=== PATIENT | male | born 1980 | race Hispanic/Latino ===

== ENCOUNTER 2016-10-08 13:29 | Emergency (ER) | payer OTHER ==
[~2016-10-08] VITALS: Ht 167.6 cm; Wt 95.5 kg
[~2016-10-08 13:29] MED LIST: OXYC5TAB72 PO
[2016-10-08 13:34] VITALS: BP 139/96; PULSE 59; RESP 20; O2SAT 99
--- NOTE | 2016-10-08 13:54 | ED.REPORT ---
HPI-Dental/Mouth Prob Date of Service Oct 08, 2016 ED Provider: Va Villatoro History of Present Illness: dental pain. did not see a dentist. will be staying in area. states had a warrent and was in nursing home in [place] , was released 10/01/2016. primary care is no one. Nursing Notes Stated Complaint: TOOTHACHE Chief Complaint: Dental Nursing Notes Reviewed: Yes Allergies: Coded Allergies: No Known Allergies (Unverified , 08/19/16) Scheduled PRN oxyCODONE (oxyCODONE) 5 Mg Tablet 5 MG PO Q4H PRN PRN For Pain General Time Seen by MD: 13:54 Chief Complaint Tooth pain Hx Obtained From: Patient Onset Occurred: 4 days ago Symptom Duration: Since onset Recent Healthcare: Recent doctor visit (seen in august for dental pain) Past Medical History Past Medical History Notes: hx of lymphoma Past Medical History Denies: Asthma, Diabetes mellitus Past Surgical History abd surgery for tumor removal Smoking History Current Every Day Smoker (1/2 pack a day for 10), Smoker Current Status UNK ( ears) Social History Alcohol Use: Denies alcohol use Drug Use: Denies drug use Occupation lives with girlfriend, work at [employer] 10/08/2016 Ambulatory Status Independent Review of Systems Basic Review of Systems Eyes: Vision NL, No discharge Cardiovascular: No chest pain, No dyspnea on exertion, No orthopnea, No parox noct dyspnea, No palpitations : No dysuria, No frequency Musculoskeletal: No extremity swelling, No extremity pain, Full range of motion , Joints NL Hematologic: No bleeding, No bruising Endocrine: No cold intolerance, No heat intolerance, No weight gain, No weight loss Skin: No bruising, No rash, No itch Allergy / Immune: No allergy Neurologic: NL mental status, No weakness, No numbness Psychiatric: Normal thought content Physical Exam Initial Vital Signs Vital Signs (First) Date Time Temp Pulse Resp B/P Pulse Ox O2 Delivery O2 Flow Rate FiO2 10/08/16 13:34 37 59 20 139/96 99 Room Air Initial VS: Reviewed, Vital signs normal General/Constitutional: Well-developed, Well-nourished Head / Eyes: Atraumatic, Normocephalic, PERRL Respiratory: Breath sounds normal, Clear to auscultation, No respiratory distress Cardiovascular: Regular rate & rhythm, Heart sounds normal, Intact distal pulses Abdomen / GI: Soft, Non-tender, No guarding, No rebound, No distention Back: No CVA tenderness Lymphatic: No lymphadenopathy Extremities: Vascular intact, Neuro intact, No swelling, No tenderness Skin: Warm, Dry, No cyanosis Neurologic: Alert, Oriented, Nonfocal Psychiatric: Mood/affect normal, Behavior normal, Normal thought content ENT: Atraumatic, Airway patent, Mucous membranes moist, Pharynx NL teeth in poor repair. tooth in question is #13, has extensive decay and is mostly gone. Many teeth have this same presentation. no facial swelling, no gum swelling, no erthyma around tooth Neck: Atraumatic, Supple, No meningismus General/Constitutional: Awake, Alert, No acute distress, Well appearing, Well developed, Well hydrated Head / Eyes: Atraumatic, Normocephalic, PERRL Respiratory / Chest: Atraumatic, Breath sounds NL, Breath sounds = bilat Cardiovascular: Heart rate NL, Regular rhythm, Heart sounds NL, No gallop Neurologic: Oriented X3, Speech NL, No motor deficits Re-Eval/Medical Decision Med Decision/Clinical Course patient with chronic decay, no facial swelling encouraged to seek dental care. Provided a list of dental resources. Discharge & Departure Primary Impression: Toothache Disposition: Home Patient Instructions: Dental Caries (ED) Additional Instructions: The tooth has extensive decay. You need to see a dentist for definitive care. Please choose one from the list of resources that is provided. Start amoxicillin 500 mg 3 times a day for 10 days. Use ibuprofen 8010 mg 3 times a day for 5 days for pain. You can use use hydrocodone 1 at night as needed for severe unrelenting pain # 6. Please establish in primary care. Consider the residency clinic. Referrals: [facility] EDSupervising Provider for APC: Ney Mejia MD copies to: [facility] Va Villatoro Oct 08, 2016 13:54
[2016-10-08] MEDS ORDERED: Ketorolac 30 mg/mL 2 mL Inj IM ONE (14:05)
[2016-10-08 14:29] VITALS: BP 150/91; PULSE 65
== END 2016-10-08 14:30 | disposition home or self-care (01) ==
LOC: SED 13:29
DX: K08.89 Other specified disorders of teeth and supporting structures (principal); F17.200 Nicotine dependence, unspecified, uncomplicated; Z85.72 Personal history of non-Hodgkin lymphomas
CPT/HCPCS: 96372; 99283; J1885

== ENCOUNTER 2017-02-21 09:18 | Emergency (ER) | payer OTHER ==
[~2017-02-21] VITALS: Ht 167.6 cm; Wt 86.4 kg
[2017-02-21 09:28] VITALS: BP 132/97; PULSE 95; RESP 18; O2SAT 98
--- NOTE | 2017-02-21 09:30 | ED.REPORT ---
HPI-Dental/Mouth Prob Date of Service Feb 21, 2017 ED Provider: Dr. Garber 36 y/o male with no pertinent hx presents to the ED complaining of tooth pain in the right upper jaw, onset 2 days ago. The pt states the tooth has been slowly breaking apart. He denies fever and vomiting. He took 3 Advil pills last night and used orogel, with little relief. He has an appointment with the dentist early next month. He had similar sx in the left upper jaw. The pt states at that time a numbing medication was not very helpful as it did not take effect until several hours later. Nursing Notes Stated Complaint: TOOTH PAIN Chief Complaint: Dental Nursing Notes Reviewed: Yes Allergies: Coded Allergies: No Known Allergies (Unverified , 08/19/16) Scheduled PRN oxyCODONE (oxyCODONE) 5 Mg Tablet 5 MG PO Q4H PRN PRN For Pain General Time Seen by MD: 09:30 Chief Complaint Tooth pain Hx Obtained From: Patient Arrived By: Walk-in Onset Occurred: 2 days ago Symptom Duration: Since onset Location: : Tooth upper R molar Quality: Painful Radiation: : Does not radiate Severity: Current: Moderate Severity: Maximum: Moderate Recent Healthcare: No recent doctor visit Similar Sx Previous: Yes Past Medical History Past Medical History lymphoma Past Surgical History abd surgery for tumor removal Smoking History Current Every Day Smoker, Smoker Current Status UNK Social History Alcohol Use: Denies alcohol use Drug Use: Denies drug use Occupation lives with girlfriend, work at [employer] 10/08/2016 Ambulatory Status Independent Review of Systems Constitutional: Denies: Fever Ears / Nose / Throat: Reports: Toothache (right upper) GI: Denies: Vomiting Complete sys rev & neg: except as marked. Physical Exam Initial Vital Signs Vital Signs (First) Date Time Temp Pulse Resp B/P Pulse Ox O2 Delivery O2 Flow Rate FiO2 02/21/17 09:28 36.5 95 18 132/97 98 Room Air Initial VS: Reviewed, Vital signs normal Respiratory: Breath sounds normal, Clear to auscultation, No respiratory distress Cardiovascular: Regular rate & rhythm, Heart sounds normal, Intact distal pulses Abdomen / GI: Soft, Non-tender Extremities: Vascular intact, Neuro intact, No swelling, No tenderness Skin: Warm, Dry, No cyanosis Neurologic: Alert, Oriented, Nonfocal ENT: Atraumatic, Airway patent, Pharynx NL, No pooling of secretions, Mastoid area NL, No facial swelling Tooth #3 eroded to the gum line No gingival abscess No surrounding erythema Tooth #2 is missing Neck: Atraumatic, Supple, Full range of motion, No adenopathy, No swelling, Non -tender General/Constitutional: Awake, Alert, Cooperative Distress / Hydration: Positive: Distress moderate Pt sitting with his hand over his right jaw. Re-Eval/Medical Decision Summary of Info: I received records from [facility] in [place] detailing in ER visit from [facility] in the afternoon yesterday. He was seen for the same indication and complaint prescribed indomethacin penicillin and tramadol No. 10 tablets 50 mg tablets we have pointed out to the patient that [employer] showed that he had been seen yesterday at the [place] [facility] which he denied and stated that that must be someone else. I went back to talk to him about about 10 minutes later and he had left the emergency department without informing staff of his departure. Re-Evaluation/Progress : Time of Eval: 10:19 Re-Evaluation/Progress Note: The pt left the hospital without informing the staff. Counseled Regarding: Diagnosis Discharge & Departure Primary Impression: Toothache Additional Impression: Drug-seeking behavior Disposition: AGAINST MEDICAL ADVICE Discharge Condition All VS Reviewed: Yes Condition: Stable Referrals: [facility] Scribe Attestation Portions of this note were transcribed by Emir Angulo. I, , personally performed the history, physical exam and medical decision-making;I reviewed and confirmed the accuracy of the information in the transcribed note. Signed by [place]. 02/21/17 10:19 copies to: [facility] Bashir Garber MD Feb 21, 2017 09:30 Emir Angulo Feb 21, 2017 09:39
== END 2017-02-21 10:26 | disposition left against medical advice (07) ==
LOC: SED 09:18
DX: K08.89 Other specified disorders of teeth and supporting structures (principal); F17.200 Nicotine dependence, unspecified, uncomplicated; Z72.89 Other problems related to lifestyle
CPT/HCPCS: 96372; 99283; J1885